=== PATIENT | female | born 1945 | race Hispanic/Latino ===

== ENCOUNTER 2016-10-30 15:05 | Outpatient (CLI) | payer BC, MEDICARE ==
--- NOTE | 2016-10-31 16:02 | Mammography Report ---
BILATERAL DIGITAL SCREENING MAMMOGRAM with CAD: 10/30/16 15:05:00 CLINICAL: Routine screening. COMPARISON:10/06/15 FINDINGS: The breasts are heterogeneously dense, which may obscure small masses. A left asymmetry on the MLO view requires additional imaging.No architectural distortion or suspicious calcifications.The right breast is negative. IMPRESSION: Left asymmetry requiring further workup. BI-RADS CATEGORY: 0 -- Additional Imaging Evaluation Required RECOMMENDATION: Recall for left lateralmedial and spot compression MLO views and left breast ultrasound if needed. ACR BI-RADS MAMMOGRAPHIC CODES: 0 = Needs additional imaging evaluation; 1 = Negative; 2 = Benign; 3 = Probably benign; 4 = Suspicious; 5 = Malignant; 6 = Known biopsy-proven malignancy COMMENT: 1. Dense breast tissue, i.e., adenosis, fibrocystic changes, etc., may obscure an underlying neoplasm. 2. Approximately 10% of cancers are not detected with mammography. 3. A negative mammography report should not delay biopsy if a clinically suspicious mass is present. COMMENT: Patient follow-up letters are generated via our [employer] application.
== END 2016-10-30 15:06 | disposition home or self-care (01) ==
LOC: SPVWC 15:05
DX: Z12.31 Encounter for screening mammogram for malignant neoplasm of breast (principal)
CPT/HCPCS: 77067; G0202

== ENCOUNTER 2016-12-19 10:29 | Outpatient (CLI) | payer MEDICARE ==
--- NOTE | 2016-12-19 11:09 | Mammography Report ---
LEFT DIGITAL DIAGNOSTIC MAMMOGRAM : 12/19/16 10:29:00 CLINICAL: Recalled for asymmetry. COMPARISON:10/30/16 screening FINDINGS: ML, repeat MLO and spot compression MLO views were performed and demonstrate no persistent asymmetry. IMPRESSION: Negative Mammogram. BI-RADS CATEGORY: 1 -- Negative RECOMMENDATION: Routine mammographic screening in one year. ACR BI-RADS MAMMOGRAPHIC CODES: 0 = Needs additional imaging evaluation; 1 = Negative; 2 = Benign; 3 = Probably benign; 4 = Suspicious; 5 = Malignant; 6 = Known biopsy-proven malignancy COMMENT: 1. Dense breast tissue, i.e., adenosis, fibrocystic changes, etc., may obscure an underlying neoplasm. 2. Approximately 10% of cancers are not detected with mammography. 3. A negative mammography report should not delay biopsy if a clinically suspicious mass is present. COMMENT: Patient follow-up letters are generated via our [email or web address] application.
== END 2016-12-19 10:30 | disposition home or self-care (01) ==
LOC: SPVWC 10:29
DX: R92.8 Other abnormal and inconclusive findings on diagnostic imaging of breast (principal)
CPT/HCPCS: G0206-LT

== ENCOUNTER 2017-12-22 09:10 | Outpatient (CLI) | payer MEDICARE ==
--- NOTE | 2017-12-22 16:54 | Mammography Report ---
BILATERAL DIGITAL SCREENING MAMMOGRAM with CAD: 12/22/17 09:10:00 CLINICAL: Routine screening. COMPARISON:10/30/16 FINDINGS: The breasts are heterogeneously dense, which may obscure small masses. No mass, architectural distortion or suspicious calcifications. IMPRESSION: No mammographic evidence of malignancy. BI-RADS CATEGORY: 1 - - Negative RECOMMENDATION: Routine mammographic screening in one year. COMMENT: Patient follow-up letters are generated by our [email or web address] application.
== END 2017-12-22 09:11 | disposition home or self-care (01) ==
LOC: SPVWC 09:10
PROVIDERS: ATTEND Obstetrics & Gynecology
DX: Z12.31 Encounter for screening mammogram for malignant neoplasm of breast (principal)
CPT/HCPCS: 77067

== ENCOUNTER 2020-01-26 10:13 | Outpatient (CLI) | payer MEDICARE ==
--- NOTE | 2020-01-26 11:24 | Mammography Report ---
DEXA BONE DENSITY SCAN INDICATION: ASYMPTOMATIC MENOPAUSAL STATE. COMPARISON: DEXA scan from 04/03/2011 LUMBAR SPINE (L1-L4): Bone mineral density (BMD) is 1.069 g/cm2. T-score is 0.2 (standard deviations of Young Adult mean). Z-score is 2.5 (standard deviations of Age Matched mean). Bone mineral density has decreased nearly 7% in this region since 2010. LEFT FEMORAL NECK: Bone mineral density (BMD) is 0.711 g/cm2. T-score is -1.2 (standard deviations of Young Adult mean). Z-score is 0.8 (standard deviations of Age Matched mean). Bone mineral density has decreased nearly 10% in this region since 2010. IMPRESSION: 1. WHO Classification: Osteopenia. Fracture Risk: Increased. Signer Name: Jorge Moore MD Signed: 01/26/2020 11:20 AM Workstation Name: [id number]
--- NOTE | 2020-01-26 11:45 | Mammography Report ---
DIGITAL SCREENING MAMMOGRAM WITH CAD, 01/26/2020 INDICATION: Routine screening mammography. SCREENING MAMMOGRAM TECHNIQUE: Digital bilateral 2D mammography was obtained in the craniocaudal and mediolateral obliq ue projections. This examination was interpreted with the benefit of Computer-Aided Detection analysi s. COMPARISON: 10/30/2016 FINDINGS: Breast Density: The breasts are heterogeneously dense, which may obscure small masses. There is no evidence of dominant mass, suspicious calcifications or architectural distortion in eithe r breast. Scars are again seen in the left breast and there are largely stable bilateral nodular dens ities in both breasts except for a new or more conspicuous nodular density measuring 7 mm near the 6: 00 position of the right breast approximately 7 cm from the nipple. IMPRESSION: Follow up recommendation: Special View: Spot with possible ultrasound to follow. Category 0: Incomplete. Needs additional imaging evaluation and/or prior mammograms for comparison. A "normal" or negative report should not discourage follow up or biopsy of a clinically significant f inding. A written summary of these findings will be mailed to the patient. The patient will be entered into a mammography reporting system which will generate a reminder letter for the patient's next appointmen t at the appropriate interval. The [employer] recommends yearly mammograms starting at age 40 and continuing as l teddy as a woman is in good health. Breast MRI is recommended for women with an approximate 20-25% or greater lifetime risk of breast cancer, including women with a strong family history of breast or ova rudi cancer or who have been treated for Hodgkin's disease. Signer Name: Jorge Moore MD Signed: 01/26/2020 11:41 AM Workstation Name: [id number]
== END 2020-01-26 10:14 | disposition home or self-care (01) ==
LOC: SPVWC 10:13
PROVIDERS: ATTEND Family Medicine
DX: Z12.31 Encounter for screening mammogram for malignant neoplasm of breast (principal); Z13.820 Encounter for screening for osteoporosis; Z78.0 Asymptomatic menopausal state
CPT/HCPCS: 77067; 77080